=== PATIENT | male | born 1955 | race African-American/Black ===

== ENCOUNTER 2017-01-22 21:23 | Emergency (ER) | payer BC ==
[~2017-01-22] VITALS: Ht 180.3 cm; Wt 124.7 kg
[~2017-01-22 21:23] MED LIST: ATORVASTATIN CA40 MG PO; MONOPRIL20 MG PO
[2017-01-22 21:24] VITALS: BP 143/82
[2017-01-22] MEDS ORDERED: BACTRIM DS TAB1 EACH PO (21:42)
== END 2017-01-22 21:58 | disposition home or self-care (01) ==
LOC: ER 21:23
DX: L60.0 Ingrowing nail (principal); I11.0 Hypertensive heart disease with heart failure; I50.9 Heart failure, unspecified

== ENCOUNTER 2017-02-25 06:32 | Emergency (ER) | payer OTHER ==
[~2017-02-25] VITALS: Ht 180.3 cm; Wt 122.5 kg
--- NOTE | ~2017-02-25 | EKG ---
[address] [place] [address] ELECTROCARDIOGRAM REPORT Name: GARIMA HOOVER Room #: [facility]ENTERLuz Marina#: [id number] Admission: 02/25/17 Attend Phys: Discharge: Date of : 59 Report #: [id number] THIS REPORT FOR: //name// [facility] ED Test Date: 2017-02-25 Test Time: 06:45:23 Pat Name: GARIMA HOOVER Department: Room: Gender: [employer] Mason: NIEVES : 1955 Requested By: Danae Urbina Order Number: [id number] MD: Boston Rocha Measurements Intervals [place] Rate: 61 P: 18 ME: 225 QRS: -20 QRSD: 100 T: 7 QT: 366 QTc: 369 Interpretive Statements Sinus rhythm Prolonged ME interval Left ventricular hypertrophy Baseline wander in lead(s) V3 No previous ECG available for comparison Electronically Signed On 02-25-2017 7:50:01 CDT by Boston Rocha [email or web address] <ELECTRONICALLY SIGNED> By: Boston Rocha MD, [facility] 02/25/17 [id number] [id number] Boston Rocha MD, FACC /EPI
[~2017-02-25 06:32] MED LIST changes: +BACTRIM DS TAB1 EACH PO
[2017-02-25] MEDS ORDERED: LISINOPRIL10 MG PO (06:38)
[2017-02-25] MEDS ORDERED: ASPIR 8181 MG PO (06:38)
[2017-02-25 06:56] LABS: BASOPHILS 1.3 % (0.0-2.0); EOSINOPHILS 6.7 % (0.0-3.0); HEMATOCRIT 44.1 % (42.0-52.0); HEMOGLOBIN 14.9 gm/dL (14.0-18.0); LYMPHOCYTES 36.8 % (24.0-44.0); MCH 29.4 pg (26.0-34.0); MCHC 33.8 g/dL (28.0-37.0); MCV 87.1 fL (80.0-100.0); MONOCYTES 7.9 % (1.0-8.0); PLATELET COUNT 271 thou/uL (150-400); POLYS 47.3 % (36.0-66.0); RBC 5.06 mil/uL (4.50-6.00); RDW 15.3 % (10.5-14.5); WBC 6.4 thou/uL (4.0-11.0)
[2017-02-25 07:00] LABS: CALCIUM 9.5 mg/dL (8.5-10.1); CREATININE 1.2 mg/dL (0.7-1.3); MANUAL DIFF NO
[2017-02-25 07:08] LABS: TROPONIN-I 0.04 ng/mL (<0.04-0.07)
[2017-02-25] MEDS ORDERED: ANTIVERT25 MG PO (07:41)
[2017-02-25 07:55] VITALS: BP 149/87
== END 2017-02-25 08:06 | disposition home or self-care (01) ==
LOC: ER 06:32
PROVIDERS: Emergency Medicine
DX: R42 Dizziness and giddiness (principal); I11.0 Hypertensive heart disease with heart failure; I50.9 Heart failure, unspecified; Z79.82 Long term (current) use of aspirin

== ENCOUNTER 2017-12-06 10:32 | Emergency (ER) | payer BC ==
[~2017-12-06] VITALS: Ht 180.3 cm; Wt 78.5 kg
[~2017-12-06 10:32] MED LIST changes: +ANTIVERT25 MG PO; +ASPIR 8181 MG PO; +GUAIFEN-CODEINE10 ML PO; +LISINOPRIL10 MG PO; +NAPROSYN500 MG PO; +TESSALON PERLE100 MG PO
[2017-12-06 11:18] VITALS: BP 148/73
== END 2017-12-06 11:18 | disposition home or self-care (01) ==
LOC: ER 10:32
DX: L60.0 Ingrowing nail (principal); I11.0 Hypertensive heart disease with heart failure; I50.9 Heart failure, unspecified

== ENCOUNTER 2018-01-12 04:23 | Emergency (ER) | payer OTHER ==
[~2018-01-12] VITALS: Ht 180.3 cm; Wt 123.8 kg
--- NOTE | ~2018-01-12 | EKG ---
[place] [address] [address] [facility] [email or web address] [address] ELECTROCARDIOGRAM REPORT Name: GARIMA HOOVER Room #: DEP Louise#: [id number] Admission: 01/12/18 Attend Phys: Discharge: 01/12/18 Date of : 59 Report #: [id number] THIS REPORT FOR: //name// [facility] ED Test Date: 2018-01-12 Test Time: 05:03:48 Pat Name: GARIMA HOOVER Department: Room: Gender: M [employer]er: ADRIANO VELA : 1955 Requested By: Atul Agrawal Order Number: [id number] MD: Elliot Heaton Measurements Intervals [place] Rate: 78 P: 34 ND: 193 QRS: -15 QRSD: 91 T: 20 QT: 344 QTc: 392 Interpretive Statements Sinus rhythm LVH by voltage Compared to ECG 02/25/2017 06:45:23 First degree AV block no longer present Electronically Signed On 01-12-2018 8:17:10 CDT by Elliot Heaton [email or web address] <ELECTRONICALLY SIGNED> By: Elliot Heaton MD 01/12/18 0817 [id number] 2 Elliot Heaton MD /INNA
[2018-01-12] MEDS ORDERED: ZOFRAN ODT8 MG PO (05:21)
[2018-01-12 05:26] LABS: ABSOLUTE NEUTROPHILS 6.4 thou/uL (1.4-8.2); BASOPHILS 0.4 % (0.0-2.0); EOSINOPHILS 3.4 % (0.0-3.0); HEMATOCRIT 48.4 % (42.0-52.0); LYMPHOCYTES 7.1 % (24.0-44.0); MCH 28.6 pg (26.0-34.0); MCHC 33.1 g/dL (28.0-37.0); MCV 86.3 fL (80.0-100.0); MONOCYTES 5.4 % (1.0-8.0); PLATELET COUNT 265 thou/uL (150-400); POLYS 83.7 % (36.0-66.0); RDW 15.6 % (10.5-14.5); WBC 7.7 thou/uL (4.0-11.0)
[2018-01-12 05:36] LABS: ANION GAP 12 mmol/L (7-16); BUN 14 mg/dL (7-18); CALCIUM 10.3 mg/dL (8.5-10.1); CHLORIDE 104 mmol/L (98-107); CO2 25 mmol/L (21-32); CREATININE 1.2 mg/dL (0.7-1.3); GLUCOSE 117 mg/dL (74-106); POTASSIUM 4.3 mmol/L (3.5-5.1); SODIUM 141 mmol/L (136-145)
[2018-01-12 05:44] LABS: ALBUMIN 4.5 g/dL (3.4-5.0); LIPASE 135 U/L (73-393); SGOT 22 U/L (15-37); SGPT 35 U/L (30-65); TOTAL PROTEIN 8.8 g/dL (6.4-8.2); TROPONIN-I < 0.04 ng/mL (<0.06)
[2018-01-12 06:32] VITALS: BP 127/67
== END 2018-01-12 06:33 | disposition home or self-care (01) ==
LOC: ER 04:23
PROVIDERS: Emergency Medicine
DX: R11.2 Nausea with vomiting, unspecified (principal); R19.7 Diarrhea, unspecified; I11.0 Hypertensive heart disease with heart failure; I50.9 Heart failure, unspecified

== ENCOUNTER 2018-07-11 17:34 | Emergency (ER) | payer OTHER ==
[~2018-07-11] VITALS: Ht 180.3 cm; Wt 122.5 kg
[~2018-07-11 17:34] MED LIST changes: +ZOFRAN ODT8 MG PO
[2018-07-11 18:53] VITALS: BP 123/102
[2018-07-11] MEDS ORDERED: NORCO 5-325 TA1 EACH PO (18:57)
== END 2018-07-11 19:20 | disposition home or self-care (01) ==
LOC: ER 17:34
DX: S52.692A Other fracture of lower end of left ulna, initial encounter for closed fracture (principal); I11.0 Hypertensive heart disease with heart failure; I50.9 Heart failure, unspecified; W00.0XXA Fall on same level due to ice and snow, initial encounter; Y92.89 Other specified places as the place of occurrence of the external cause; Y93.89 Activity, other specified; Y99.8 Other external cause status

== ENCOUNTER 2018-09-27 18:45 | Emergency (ER) | payer OTHER ==
[~2018-09-27] VITALS: Ht 180.3 cm; Wt 123.8 kg
[~2018-09-27 18:45] MED LIST changes: +NORCO 5-325 TA1 EACH PO
[2018-09-27] MEDS ORDERED: VITAMIN D2000 UNIT PO (18:59)
[2018-09-27] MEDS ORDERED: SPIRONOLACTONE25 M1 PO (19:00)
[2018-09-27 19:15] LABS: URINE BILIRUBIN NEGATIVE (Negative); URINE BLOOD NEGATIVE (Negative); URINE CLARITY CLEAR; URINE COLOR YELLOW; URINE GLUCOSE-RANDOM* NEGATIVE (Negative); URINE KETONES TRACE (Negative); URINE LEUKOCYTES-REFLEX NEGATIVE (Negative); URINE NITRITE-REFLEX NEGATIVE (Negative); URINE PROTEIN (DIPSTICK) NEGATIVE (Negative)
[2018-09-27 19:19] LABS: ABSOLUTE NEUTROPHILS 3.2 thou/uL (1.4-8.2); BASOPHILS 1.7 % (0.0-2.0); EOSINOPHILS 5.9 % (0.0-3.0); HEMATOCRIT 41.1 % (42.0-52.0); LYMPHOCYTES 40.9 % (24.0-44.0); MCH 29.5 pg (26.0-34.0); MCHC 34.1 g/dL (28.0-37.0); MCV 86.4 fL (80.0-100.0); MONOCYTES 7.4 % (1.0-8.0); PLATELET COUNT 311 thou/uL (150-400); POLYS 44.1 % (36.0-66.0); RBC 4.75 mil/uL (4.50-6.00); RDW 14.6 % (10.5-14.5); WBC 7.3 thou/uL (4.0-11.0)
[2018-09-27 19:27] LABS: CALCIUM 9.8 mg/dL (8.5-10.1); CREATININE 1.1 mg/dL (0.7-1.3)
[2018-09-27 19:52] VITALS: BP 148/74
== END 2018-09-27 19:52 | disposition home or self-care (01) ==
LOC: ER 18:45
PROVIDERS: Nurse Practitioner Family
DX: K62.5 Hemorrhage of anus and rectum (principal); I11.0 Hypertensive heart disease with heart failure; I50.9 Heart failure, unspecified

== ENCOUNTER 2019-07-26 08:51 | Emergency (ER) | payer OTHER ==
[~2019-07-26] VITALS: Ht 180.3 cm; Wt 124.3 kg
[~2019-07-26 08:51] MED LIST changes: +SPIRONOLACTONE25 M1 PO; +VITAMIN D2000 UNIT PO
[2019-07-26 10:42] VITALS: BP 142/78
== END 2019-07-26 10:50 | disposition home or self-care (01) ==
LOC: ER 08:51
DX: S50.02XA Contusion of left elbow, initial encounter (principal); H11.32 Conjunctival hemorrhage, left eye; I11.0 Hypertensive heart disease with heart failure; I50.9 Heart failure, unspecified; W00.0XXA Fall on same level due to ice and snow, initial encounter; Y92.89 Other specified places as the place of occurrence of the external cause; Y93.89 Activity, other specified; Y99.8 Other external cause status

== ENCOUNTER 2021-06-17 22:25 | Emergency (ER) | payer OTHER ==
[~2021-06-17] VITALS: Ht 180.3 cm; Wt 117.9 kg
[2021-06-17 23:06] LABS: URINE BILIRUBIN NEGATIVE (Negative); URINE BLOOD TRACE (Negative); URINE CLARITY CLEAR; URINE COLOR YELLOW; URINE GLUCOSE-RANDOM* NEGATIVE (Negative); URINE KETONES NEGATIVE (Negative); URINE LEUKOCYTES-REFLEX NEGATIVE (Negative); URINE NITRITE-REFLEX NEGATIVE (Negative); URINE PROTEIN (DIPSTICK) NEGATIVE (Negative); URINE SPECIFIC GRAVITY 1.025 (1.005-1.035)
[2021-06-17 23:35] LABS: ABSOLUTE NEUTROPHILS 2.6 thou/uL (1.4-8.2); BASOPHILS 0.9 % (0.0-2.0); EOSINOPHILS 8.1 % (0.0-3.0); HEMATOCRIT 42.4 % (42.0-52.0); HEMOGLOBIN 13.8 gm/dL (14.0-18.0); LYMPHOCYTES 43.1 % (24.0-44.0); MCH 28.6 pg (26.0-34.0); MCHC 32.5 g/dL (28.0-37.0); MCV 88.1 fL (80.0-100.0); MONOCYTES 7.1 % (1.0-8.0); PLATELET COUNT 252 thou/uL (150-400); POLYS 40.8 % (36.0-66.0); RBC 4.82 mil/uL (4.50-6.00); RDW 15.5 % (10.5-14.5); WBC 6.3 thou/uL (4.0-11.0)
[2021-06-17 23:49] LABS: CALCIUM 8.8 mg/dL (8.5-10.1); POTASSIUM 4.1 mmol/L (3.5-5.1)
[2021-06-17 23:55] LABS: ALBUMIN 3.9 g/dL (3.4-5.0); TOTAL BILIRUBIN 0.4 mg/dL (0.2-1.0); TOTAL PROTEIN 7.6 g/dL (6.4-8.2)
[2021-06-18 01:31] VITALS: BP 141/80
== END 2021-06-18 01:32 | disposition home or self-care (01) ==
LOC: ER 22:25
PROVIDERS: Emergency Medicine; Family Medicine
DX: R31.9 Hematuria, unspecified (principal); I11.0 Hypertensive heart disease with heart failure; I50.9 Heart failure, unspecified; E11.9 Type 2 diabetes mellitus without complications; Z79.82 Long term (current) use of aspirin; Z79.891 Long term (current) use of opiate analgesic; Z79.899 Other long term (current) drug therapy